=== PATIENT | male | born 1960 | race Caucasian/White ===

== ENCOUNTER 2021-09-05 07:32 | Day surgery (SDC) | payer BC ==
[~2021-09-05 07:32] MED LIST: Midazolam 1 MG/ML 2 ML SDV ONE; Propofol 200 MG/20 ML SDV ONE; fentaNYL 100 MCG/2 ML SDV ONE
[2021-09-05] MEDS ORDERED: Sodium Chloride 0.9% 1,000 ML IV SCH (08:00)
== END 2021-09-05 10:30 | disposition home or self-care (01) ==
LOC: JP.SDS 07:32
PROVIDERS: ATTEND Surgery
DX: Z12.11 Encounter for screening for malignant neoplasm of colon (principal); K62.1 Rectal polyp
CPT/HCPCS: 88305; J2250; J2704; J3010; J7030

== ENCOUNTER 2021-09-17 10:27 | Day surgery (SDC) | payer BC ==
[2021-09-17] MEDS ORDERED: Neostigmine Methylsulfate 1 MG/ML 5 ML Syringe ONE (10:34)
[2021-09-17] MEDS ORDERED: Dexamethasone 4 MG/ML SDV ONE ×2 (10:34→11:17)
[2021-09-17] MEDS ORDERED: Ondansetron 4 MG/2 ML SDV ONE (10:34)
[2021-09-17] MEDS ORDERED: Glycopyrrolate 0.2 MG/ML 5 ML MDV ONE (10:34)
[2021-09-17] MEDS ORDERED: Propofol 200 MG/20 ML SDV ONE (10:34)
[2021-09-17] MEDS ORDERED: Rocuronium 50 MG/5 ML Vial ONE (10:34)
[2021-09-17] MEDS ORDERED: Succinylcholine 200 MG/10 ML MDV ONE (10:34)
[2021-09-17] MEDS ORDERED: fentaNYL 250 MCG/5 ML SDV ONE (10:34)
[2021-09-17] MEDS ORDERED: Acetaminophen 500 MG Tab PO ONE (10:45)
[2021-09-17] MEDS ORDERED: Ampicillin/Sulbactam Na 3 GM in Sodium Chloride 0.9% 100 ML IV ONE (11:00)
[2021-09-17] MEDS ORDERED: Dextrose 5%-Lactated Ringers 1,000 ML IV SCH (11:00)
[2021-09-17 11:22] LABS: CORONAVIRUS COVID-19 NAA NEGATIVE (NEGATIVE)
[2021-09-17] MEDS ORDERED: Bupivacaine 0.5%/EPINEPHrine 1:200,000 50 ML MDV ONE (11:29)
[2021-09-17] MEDS ORDERED: Lidocaine 2% Viscous Solution 15 ML UD PO ONE (12:45)
== END 2021-09-17 13:10 | disposition home or self-care (01) ==
LOC: JP.SDS 10:27
PROVIDERS: ATTEND Surgery
DX: J39.0 Retropharyngeal and parapharyngeal abscess (principal); H54.62 Unqualified visual loss, left eye, normal vision right eye; Z98.890 Other specified postprocedural states; Z79.82 Long term (current) use of aspirin; Z79.899 Other long term (current) drug therapy; Z01.812 Encounter for preprocedural laboratory examination; Z20.822 Contact with and (suspected) exposure to COVID-19
CPT/HCPCS: 0241U; 36415; 80048; 85027; 87070; 87075; 87077; 87205; A9270-GY; J0295; J0330; J1100; J2405; J2704; J2710; J3010; J3490; J7121